=== PATIENT | male | born 1975 | race Caucasian/White ===

== ENCOUNTER 2020-03-13 11:00 | Emergency (ER) | payer OTHER, SELFPAY ==
--- NOTE | 2020-03-13 11:26 | ED.EYEPROB ---
HPI - Eye Problem General Chief complaint: Eye Problems Stated complaint: eye redness/pain Source: patient Mode of arrival: ambulatory Limitations: no limitations History of Present Illness HPI Narrative: The patient, who does not wear contact lenses/prescription eyeglasses, presents with left eye discomfort. 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 Patient states he woke this morning with left eye redness and discomfort with some grittiness and foreign body sensation especially the upper eyelid. He felt that it seemed to worsen during his run with no acute injury, photophobia, significant discharge but he does have some watering. Symptoms are mild, worse with palpation of upper medial lid; patient advised to see eye doctor without fail in follow-up Related Data Home Medications Medication Instructions Recorded Confirmed insulin glargine [Lantus Solostar 24 unit SUBCUT HS 03/13/20 03/13/20 U-100 Insulin] insulin lispro [Humalog KwikPen 24 unit SUBCUT HS 03/13/20 03/13/20 Insulin] pravastatin 20 mg PO DAILY 03/13/20 03/13/20 Allergies Allergy/AdvReac Type Severity Reaction Status Date / Time No Known Allergies Allergy Verified 03/13/20 11:04 Review of Systems Review of Systems: Narrative: General/Constitutional: No weight loss,fever Eyes: ++ Redness,discharge Ears/Nose/Throat: No: Epistaxis,ear discharge Respiratory: Denies: Hemoptysis Gastrointestinal: No Vomiting, Bleeding-rectal Skin: No Lumps, eruption Neurologic: No Focal Weakness,Sz Hematologic: Denies: Petechiae/Purpura Psychiatric: No: Suicida ideationl All Other Systems: Reviewed and Negative PMFSH Social History Social History Alcohol intake: current Comments At time of signature, agree with nursing past medical, surgical, social and family history. There is no relevant family history pertinent to the presenting complaint Exam Narrative: Exam Narrative: General Appearance: Well appearing, Well nourished, No distress EYE: PERRLA ,[id number] normal, EOMI ,lens normal, Left corneas + fluorescein uptake well demarcated ovoid abrasion , 10-12o'clock; eye irrigated, no FB seen;anterior chamber deep, Conjunctiva injection bilat Ears: External ear normal, Auditory canal normal Nose: Normal nose, Nares clear Mouth/Throat: Normal appearing, Normal lips Neck: Supple, No adenopathy Respiratory: Airway patent, No respiratory distress Skin: Warm, Dry Neurological: A&O x3, CN II-X intact Psychiatric: Normal mood, Normal affect Course Vital Signs Vital signs: Vital Signs Temperature 98.7 F 03/13/20 11:30 Pulse Rate 71 03/13/20 11:30 Respiratory Rate 18 03/13/20 11:30 Blood Pressure 121/81 03/13/20 11:30 Pulse Oximetry 98 03/13/20 11:30 Temperature 98.7 F 03/13/20 11:30 Pulse Rate 71 03/13/20 11:30 Respiratory Rate 18 03/13/20 11:30 Blood Pressure 121/81 03/13/20 11:30 Pulse Oximetry 98 03/13/20 11:30 Discharge Plan Discharge Clinical Impression: Redness of eye, left Patient Disposition: Home, Self-Care Condition: Stable Instructions: Corneal Abrasion (ED), Conjunctivitis (ED) Additional Instructions: Go to eye doctor for follow-up without fail, dianne as you have history of diabetes Prescriptions: New ofloxacin [Ocuflox] 0.3 % drops 2 drop EACH EYE QID Qty: 5 RF: 0 tramadol 50 mg tablet 50 mg PO Q6H PRN (Reason: pain) Qty: 15 RF: 1 No Action pravastatin 20 mg tablet 20 mg PO DAILY RF: 0 insulin lispro [Humalog KwikPen Insulin] 100 unit/mL insulin pen 24 unit subcut HS RF: 0 Lantus Solostar U-100 Insulin 100 unit/mL (3 mL) insulin pen 24 unit SUBCUT HS RF: 0 Interventions: Discharge Disposition Last Done: 03/13/20 12:02 Follow-up/Referrals: PHYSICIAN,[facility] [Primary Care Provider] - Discharge Date/Time: 03/13/20 12:00
[2020-03-13 11:30] VITALS: BP 121/81; PULSE 71; RESP 18; TEMP 37.1; O2SAT 98
== END 2020-03-13 12:00 | disposition home or self-care (01) ==
PROVIDERS: Emergency Provider Emergency Medicine
DX: H57.89 Other specified disorders of eye and adnexa (principal); E11.9 Type 2 diabetes mellitus without complications; Z90.5 Acquired absence of kidney; Z79.4 Long term (current) use of insulin
CPT/HCPCS: 99213; A9270; G0463